=== PATIENT | female | born 1960 | race Caucasian/White ===

== ENCOUNTER 2018-07-15 01:41 | Emergency (ER) | payer BC ==
[2018-07-15 02:04] LABS: URINE APPEARANCE CLEAR; URINE BILIRUBIN NEGATIVE (NEGATIVE); URINE BLOOD TRACE-I (NEGATIVE); URINE COLOR YELLOW; URINE GLUCOSE (UA) NEGATIVE (NEGATIVE); URINE KETONE NEGATIVE (NEGATIVE); URINE LEUKOCYTE ESTERASE NEGATIVE (NEGATIVE); URINE NITRITE NEGATIVE (NEGATIVE); URINE PROTEIN NEGATIVE (NEGATIVE); URINE UROBILINOGEN 0.2 E.U./dL (0.20 - 1.00)
[2018-07-15 02:08] LABS: URINE BACTERIA NONE SEEN; URINE RBC 0 - 2 (NONE SEEN); URINE WBC 0 - 2 (0-2/hpf)
[2018-07-15] MEDS ORDERED: 0.9 % SODIUM CHLORIDE 1,000 ML BAG IV ONE (02:33)
[2018-07-15] MEDS ORDERED: MAGNESIUM HYDROXIDE/AL HYDROX 30 ML, LIDOCAINE VISC 2% 15ML 15 ML PO ONE ×2 (02:35)
--- NOTE | 2018-07-15 02:41 | Emergency Department Record ---
History of Present Illness - General Chief Complaint: Abdominal Pain Stated Complaint: ABD PAIN Time Seen by Provider: 07/15/18 01:45 Source: Patient Mode of Arrival: Ambulatory Limitations: No limitations - History of Present Illness Initial Comments: pt has ap that started about 8 hours ago before dinner. it feels like a gas pain that wont stop. no n/v/c/d. nothing makes it better or worse. pain is all over MD Complaint: Abdominal pain Onset/Timin -: Hour(s) Location: Epigastric Radiation: Back Severity scale (1-10): 7 Quality: Fullness Consistency: Constant Improves With: Nothing Worsens With: Nothing Associated Symptoms: Denies other symptoms - Related Data Patient : No Allergies Allergy/AdvReac Type Severity Reaction Status Date / Time levofloxacin [From Levaquin] Allergy Mild NAUSEA AND Verified 07/15/18 03:18 VOMITING codeine AdvReac NAUSEA AND Verified 07/15/18 03:18 VOMITING Travel Screening - Travel/Exposure Within Last 30 Days Have you traveled within the last 30 days?: No - Travel Symptoms Symptom Screening: None Review of Systems Reviewed: No additional complaints except as noted below Constitutional: Reports: As per HPI. Denies: Chills, Fever, Malaise, Night sweats, Weakness, Weight change Eyes: Reports: As per HPI. Denies: Eye discharge, Eye pain, Photophobia, Vision change ENT: Reports: As per HPI. Denies: Congestion, Dental pain, Ear pain, Epistaxis , Hearing loss, Throat pain Respiratory: Reports: As per HPI. Denies: Cough, Dyspnea, Hemoptysis, Stridor, Wheezes Cardiovascular: Reports: As per HPI. Denies: Arrhythmia, Chest pain, Dyspnea on exertion, Edema, Murmurs, Orthopnea, Palpitations, Paroxysmal nocturnal dyspnea, Rheumatic Fever, Syncope Endocrine: Reports: As per HPI. Denies: Fatigue, Heat or cold intolerance, Polydipsia, Polyuria Gastrointestinal: Reports: As per HPI, Abdominal pain. Denies: Constipation, Diarrhea, Hematemesis, Hematochezia, Melena, Nausea, Vomiting Genitourinary: Reports: As per HPI. Denies: Abnormal menses, Discharge, Dyspareunia, Dysuria, Frequency, Hematuria, Incontinence, Retention, Urgency Musculoskeletal: Reports: As per HPI. Denies: Arthralgia, Back pain, Gout, Joint swelling, Myalgia, Neck pain Skin: Reports: As per HPI. Denies: Bruising, Change in color, Change in hair/ nails, Lesions, Pruritus, Rash Neurological: Reports: As per HPI. Denies: Abnormal gait, Confusion, Headache, Numbness, Paresthesias, Seizure, Tingling, Tremors, Vertigo, Weakness Psychiatric: Reports: As per HPI. Denies: Anxiety, Auditory hallucinations, Depression, Homicidal thoughts, Suicidal thoughts, Visual hallucinations Hematological/Lymphatic: Reports: As per HPI. Denies: Anemia, Blood Clots, Easy bleeding, Easy bruising, Swollen glands Past Medical History - SOCIAL HISTORY Smoking Status: Former smoker Drug Use: Occasional Drug Use Detail:: Marijuana - RESPIRATORY Hx Respiratory Disorders: No - CARDIOVASCULAR Hx Cardio Disorders: No - NEURO Hx Neuro Disorders: No - GI Hx GI Disorders: Yes Hx Reflux: Yes - Hx Genitourinary Disorders: Yes Hx Kidney Stones: Yes - ENDOCRINE Hx Endocrine Disorders: No - MUSCULOSKELETAL Hx Musculoskeletal Disorders: Yes - PSYCH Hx Psych Problems: Yes Hx Anxiety: Yes - HEMATOLOGY/ONCOLOGY Hx Hematology/Oncology Disorders: No Hx Cancer: Yes (Skin) Hx Chemotherapy: No Hx Radiation Therapy: No Family Medical History Any Significant Family History?: Yes Hx Cancer: Mother Hx Heart Disease: Father, Mother Physical Exam - General General Appearance: Alert, Oriented x3, Cooperative, Mild distress - Head Head exam: Normal inspection - Eye Eye exam: Normal appearance, PERRL, EOMI Pupils: Normal accommodation - ENT ENT exam: Normal exam, Mucous membranes moist, Normal external ear exam, Normal orophraynx Ear exam: Normal external inspection. negative: External canal tenderness Nasal Exam: Normal inspection. negative: Discharge, Sinus tenderness Mouth exam: Normal external inspection, Tongue normal Teeth exam: Normal inspection. negative: Dental caries Throat exam: Normal inspection. negative: Tonsillar erythema, Tonsillar exudate - Neck Neck exam: Normal inspection, Full ROM. negative: Tenderness - Respiratory Respiratory exam: Normal lung sounds bilaterally. negative: Respiratory distress - Cardiovascular Cardiovascular Exam: Regular rate, Normal rhythm, Normal heart sounds - GI/Abdominal GI/Abdominal exam: Soft, Normal bowel sounds, Tenderness - Rectal Rectal exam: Deferred - exam: Deferred - Extremities Extremities exam: Normal inspection, Full ROM, Normal capillary refill. negative: Tenderness - Back Back exam: Reports: Normal inspection, Full ROM. Denies: Muscle spasm, Rash noted, Tenderness - Neurological Neurological exam: Alert, CN II-XII intact, Normal gait, Oriented X3 - Psychiatric Psychiatric exam: Normal affect, Normal mood - Skin Skin exam: Dry, Intact, Normal color, Warm Course Vital Signs 07/15/18 01:49 Temperature 98.1 F Pulse Rate [ 84 Pulse Ox Probe] Respiratory 20 Rate Blood Pressure 167/105 [Left Arm] Pulse Ox 97 - Reevaluation(s) Reevaluation #1: 07/15/18 04:08 pt feels much better Medical Decision Making - Lab Data Result diagrams: 07/15/18 02:23 07/15/18 02:23 Lab Results 07/15/18 Range/Units 02:05 Urine Color Yellow Urine Appearance Clear Urine pH 7.0 (5.0-8.0) Ur Specific [place] 1.020 (1.002-1.030) Urine Protein Negative (NEGATIVE) Urine Glucose (UA) Negative (NEGATIVE) Urine Ketones Negative (NEGATIVE) Urine Blood Trace-i (NEGATIVE) Urine Nitrite Negative (NEGATIVE) Urine Bilirubin Negative (NEGATIVE) Urine Urobilinogen 0.2 (0.20 - 1.00) E.U./dL Ur Leukocyte Esterase Negative (NEGATIVE) Urine RBC 0 - 2 (NONE SEEN) Urine WBC 0 - 2 (0-2/hpf) Ur Epithelial Cells 3 - 6 (FEW) Urine Bacteria None seen Disposition Disposition: Discharge Clinical Impression: Biliary colic, Nephrolithiasis Disposition: Home, Self-Care Condition: (1) Good Instructions: Biliary Colic (ED), Gallstones (ED) Additional Instructions: follow up with family doctor on monday. return sooner if worse. eat a bland diet. have an ultrasound of gallbladder. Forms: Patient Portal Access Quality - Quality Measures Quality Measures: N/A - Blood Pressure Screening Does Patient Have Any of the Following: No Blood Pressure Classification: Pre-Hypertensive BP Reading Systolic Measurement: 166 Diastolic Measurement: 84 Screening for High Blood Pressure: < Pre-Hypertensive BP, F/U Documented > [ G8950] Pre-Hypertensive Follow-up Interventions: Follow-up with rescreen every year.
[2018-07-15 02:42] LABS: BASO % 0.4 % (0-6); EOS % 3.8 % (0-6); GRAN % 67.7 % (47-80); HEMATOCRIT 44.8 % (35.0-47.0); HEMOGLOBIN 14.9 gm/dl (11.6-16.0); LYMPH % 20.9 % (16-45); MEAN CELL VOLUME 85.7 fl (81-97); MEAN CORPUSCULAR HEMOGLOBIN 28.5 pg (27-33); MEAN CORPUSCULAR HGB CONC 33.3 g/dl (32-36); MEAN PLATELET VOLUME 10.1 fl (7.4-10.4); MONO % 7.2 % (0-9); PLATELET COUNT 259 K/uL (130-400); RED BLOOD COUNT 5.23 M/uL (3.80-5.40); RED CELL DISTRIBUTION WIDTH 13.8 % (11.5-14.5); WHITE BLOOD COUNT W/O DIFF 9.1 K/uL (4.2-12.2)
[2018-07-15 02:53] LABS: BLOOD UREA NITROGEN 12 mg/dL (6-20); CREATININE 0.8 mg/dL (0.5-0.9); EST GLOMERULAR FILTRATION RATE > 60 mL/min; TOTAL PROTEIN 7.8 g/dL (6.6-8.7)
[2018-07-15 02:55] LABS: GLUCOSE,RANDOM 148 mg/dL (74-109)
[2018-07-15 02:58] LABS: ALBUMIN 3.9 g/dL (4.0-5.0); ALKALINE PHOSPHATASE 97 U/L (35-104); ALT/SGPT 8 U/L (<33); AST/SGOT 13 U/L (10.0-35.0)
[2018-07-15] MEDS ORDERED: KETOROLAC 30 MG/ML VIAL IVP ONE (03:12)
--- NOTE | 2018-07-16 14:59 | CT SCAN REPORT ---
EXAM: NONCONTRAST CT OF THE ABDOMEN AND PELVIS HISTORY: UPPER ABDOMINAL PAIN FOR 7-8 HOURS. TECHNIQUE: Noncontrast CT of the abdomen and pelvis was obtained. Comparison: None. FINDINGS: Mild atelectasis in both lung bases. Suggestion of faint gallstones. The gallbladder appears mildly distended with suggestion of wall thickening. No appreciable dilatation of the common bile duct. Unremarkable noncontrast CT appearance of the liver, spleen, adrenal glands, and pancreas. No hydronephrosis. Right intrarenal calculi measuring up to 2 mm. No calculi identified within the ureters or urinary bladder. The urinary bladder is mildly distended. No abnormal pelvic mass detected; pelvic structures not optimally assessed without intravenous contrast. Scattered colonic diverticulosis without evidence of acute diverticulitis. The appendix is difficult to visualize, but no right lower quadrant abdominal inflammatory changes identified. No free air or free fluid in the abdomen or pelvis. The abdominal aorta is minimally calcified and nondilated. No acute osseous findings. IMPRESSION: 1. SUGGESTION OF CHOLELITHIASIS WITH ASSOCIATED GALLBLADDER WALL THICKENING AND MILD GALLBLADDER DISTENTION. FINDINGS SUSPICIOUS FOR ACUTE CHOLECYSTITIS. THIS COULD BE FURTHER CHARACTERIZED WITH DEDICATED ULTRASOUND. 2. RIGHT INTRARENAL CALCULI WITHOUT EVIDENCE OF COLLECTING SYSTEM OBSTRUCTION. 3. COLONIC DIVERTICULOSIS WITHOUT EVIDENCE OF ACUTE DIVERTICULITIS. JOB NUMBER: [id number] MTDD
== END 2018-07-15 04:21 | disposition home or self-care (01) ==
LOC: ER 01:41
DX: N20.0 Calculus of kidney (principal); K80.50 Calculus of bile duct without cholangitis or cholecystitis without obstruction; Z87.891 Personal history of nicotine dependence
CPT/HCPCS: 74176; 80053; 81001; 85025; 96361; 96374; 99284; J1885; J7030

== ENCOUNTER 2018-10-09 22:11 | Emergency (ER) | payer BC ==
[2018-10-09] MEDS ORDERED: ONDANSETRON HCL IV 4 MG/2 ML VIAL IVP ONE (22:20)
[2018-10-09] MEDS ORDERED: KETOROLAC 30 MG/ML VIAL IVP ONE (22:21)
[2018-10-09] MEDS ORDERED: 0.9 % SODIUM CHLORIDE 1000ML 1,000 ML IV SCH (22:30)
--- NOTE | 2018-10-09 22:31 | Emergency Department Record ---
History of Present Illness - General Chief Complaint: Back Pain/Injury Stated Complaint: BACK/ABDOMINAL PAIN Time Seen by Provider: 10/09/18 22:20 Source: Patient Mode of Arrival: Ambulatory Limitations: No limitations - History of Present Illness Initial Comments: 58 yo female presents to ED for evaluation of right flank and right upper quadrant abdominal pain symptoms that began approximately 10 hours ago. Patient denies nausea, vomiting, loose stools, or urinary symptoms. Patient reports previous symptoms, was told "it was my gallbladder", also reports history of kidney stones. Patient denies previous surgical consultation for her gallbladder, does report previous hysterectomy and tubal removal. MD Complaint: Back pain, Other Onset/Timin -: Hour(s) Radiation: Abdomen Severity scale (1-10): 7 Quality: Sharp, Stabbing Consistency: Constant Improves With: None Worsens With: None Associated Symptoms: Abdominal pain, Nausea/vomiting Treatment Prior to Arrival Comment:: took ultram at about 5pm - Related Data Allergies Allergy/AdvReac Type Severity Reaction Status Date / Time levofloxacin [From Levaquin] Allergy Mild NAUSEA AND Verified 07/15/18 03:18 VOMITING codeine AdvReac NAUSEA AND Verified 07/15/18 03:18 VOMITING Travel Screening - Travel/Exposure Within Last 30 Days Have you traveled within the last 30 days?: No - Travel Symptoms Symptom Screening: None Review of Systems Constitutional: Denies: Chills, Fever, Malaise, Night sweats Eyes: Denies: Eye discharge, Eye pain ENT: Denies: Congestion, Ear pain, Epistaxis Respiratory: Denies: Cough, Dyspnea Cardiovascular: Denies: Chest pain, Dyspnea on exertion Endocrine: Denies: Fatigue, Heat or cold intolerance Gastrointestinal: Reports: Abdominal pain, Nausea. Denies: Constipation, Vomiting Genitourinary: Denies: Dysuria, Hematuria, Incontinence, Retention Musculoskeletal: Reports: Back pain. Denies: Arthralgia, Gout Skin: Denies: Bruising, Change in color Neurological: Denies: Abnormal gait, Confusion, Headache, Seizure Psychiatric: Denies: Anxiety Hematological/Lymphatic: Denies: Anemia, Blood Clots Past Medical History - SOCIAL HISTORY Smoking Status: Former smoker - RESPIRATORY Hx Respiratory Disorders: No - CARDIOVASCULAR Hx Cardio Disorders: No - NEURO Hx Neuro Disorders: No - GI Hx GI Disorders: Yes Hx Reflux: Yes - Hx Genitourinary Disorders: Yes Hx Kidney Stones: Yes - ENDOCRINE Hx Endocrine Disorders: No - MUSCULOSKELETAL Hx Musculoskeletal Disorders: Yes - PSYCH Hx Psych Problems: Yes Hx Anxiety: Yes - HEMATOLOGY/ONCOLOGY Hx Hematology/Oncology Disorders: Yes Hx Cancer: Yes (Skin) Hx Chemotherapy: No Hx Radiation Therapy: No Family Medical History Any Significant Family History?: Yes Hx Cancer: Mother Hx Heart Disease: Father, Mother Physical Exam - General General Appearance: Alert, Oriented x3, Cooperative, Moderate distress, Anxious Limitations: No limitations - Head Head exam: Atraumatic, Normocephalic, Normal inspection Head exam detail: negative: Abrasion, Contusion, Jerry's sign, General tenderness, Hematoma, Laceration - Eye Eye exam: Normal appearance. negative: Conjunctival injection, Periorbital swelling, Periorbital tenderness, Scleral icterus - ENT Ear exam: negative: Auricular hematoma, Auricular trauma Nasal Exam: negative: Active bleeding, Discharge, Dried blood, Foreign body Mouth exam: negative: Drooling, Laceration, Muffled voice, Tongue elevation - Neck Neck exam: Normal inspection. negative: Meningismus, Tenderness - Respiratory Respiratory exam: Normal lung sounds bilaterally. negative: Rales, Respiratory distress, Rhonchi, Stridor - Cardiovascular Cardiovascular Exam: Regular rate, Normal rhythm, Normal heart sounds - GI/Abdominal GI/Abdominal exam: Soft, Tenderness (TTP epigastric, RUQ regions on examination. ). negative: Rebound, Rigid - Rectal Rectal exam: Deferred - exam: Deferred - Extremities Extremities exam: Normal inspection. negative: Calf tenderness, Pedal edema, Tenderness - Back Back exam: Reports: CVA tenderness (R). Denies: CVA tenderness (L) - Neurological Neurological exam: Alert, Normal gait, Oriented X3 - Psychiatric Psychiatric exam: Normal affect, Normal mood - Skin Skin exam: Normal color. negative: Abrasion Type of lesion: negative: abrasion Course Vital Signs 10/09/18 22:18 Temperature 98 F Pulse Rate [ 86 Pulse Ox Probe] Respiratory 20 Rate Blood Pressure 178/102 [Left Arm] Pulse Ox 96 - Reevaluation(s) Reevaluation #1: 10/09/18 23:05 Laboratory studies were reviewed and are grossly unremarkable for an acute process. Patient is going for CT imaging at this time. Reevaluation #2: 10/09/18 23:31 Patient is back from CT imaging, reports that she is feeling much better. Imaging result pending. Reevaluation #3: 10/09/18 23:49 CT Abdomen and pelvis: 2 mm non-obstructing right renal calculus Diverticulosis, constipation No acute inflammatory process Patient was updated on all results, continues to report that she is feeling well and appears stable for discharge home at this time. Will refer the patient to be seen by Dr. Velazquez in the [facility] for possible biliary colic. Medical Decision Making - Lab Data Result diagrams: 10/09/18 22:33 10/09/18 22:33 Disposition Disposition: Discharge Clinical Impression: Abdominal pain Qualifiers: Abdominal location: generalized Qualified Code(s): R10.84 - Generalized abdominal pain Disposition: Home, Self-Care Condition: (2) Stable Instructions: Abdominal Pain (ED) Additional Instructions: Return to ED if your symptoms worsen or if you have any concerns. Follow-up with Dr. Velazquez in the [facility] for evaluation of possible biliary colic. Referrals: Ruy Velazquez [DOCTOR OF OSTEOPATH] - [facility] [Provider Group] Forms: Patient Portal Access Time of Disposition: 23:51 Quality - Quality Measures Quality Measures: N/A - Blood Pressure Screening Does Patient Have Any of the Following: No Blood Pressure Classification: Pre-Hypertensive BP Reading Systolic Measurement: 153 Diastolic Measurement: 85 Screening for High Blood Pressure: < Pre-Hypertensive BP, F/U Documented > [ G8950] Pre-Hypertensive Follow-up Interventions: Referral to alternative/primary care provider.
[2018-10-09 22:33] LABS: URINE APPEARANCE CLEAR; URINE BILIRUBIN NEGATIVE (NEGATIVE); URINE BLOOD SMALL (NEGATIVE); URINE COLOR YELLOW; URINE GLUCOSE (UA) NEGATIVE (NEGATIVE); URINE KETONE NEGATIVE (NEGATIVE); URINE LEUKOCYTE ESTERASE NEGATIVE (NEGATIVE); URINE NITRITE NEGATIVE (NEGATIVE); URINE PROTEIN NEGATIVE (NEGATIVE); URINE UROBILINOGEN 0.2 E.U./dL (0.20 - 1.00)
[2018-10-09 22:39] LABS: URINE BACTERIA FEW; URINE RBC 0 - 2 (NONE SEEN); URINE WBC 0 - 2 (0-2/hpf)
[2018-10-09 22:45] LABS: BASO % 0.8 % (0-6); EOS % 4.1 % (0-6); GRAN % 60.1 % (47-80); HEMATOCRIT 44.8 % (35.0-47.0); HEMOGLOBIN 14.8 gm/dl (11.6-16.0); LYMPH % 27.3 % (16-45); MEAN CELL VOLUME 85.7 fl (81-97); MEAN CORPUSCULAR HEMOGLOBIN 28.3 pg (27-33); MEAN PLATELET VOLUME 9.8 fl (7.4-10.4); MONO % 7.7 % (0-9); PLATELET COUNT 285 K/uL (130-400); RED BLOOD COUNT 5.23 M/uL (3.80-5.40); RED CELL DISTRIBUTION WIDTH 13.7 % (11.5-14.5); WHITE BLOOD COUNT W/O DIFF 10.7 K/uL (4.2-12.2)
[2018-10-09 22:55] LABS: BLOOD UREA NITROGEN 13 mg/dL (6-20); CREATININE 0.8 mg/dL (0.5-0.9); EST GLOMERULAR FILTRATION RATE > 60 mL/min
[2018-10-09 22:56] LABS: LIPASE 53 U/L (13-60)
[2018-10-09 22:58] LABS: GLUCOSE,RANDOM 128 mg/dL (74-109)
[2018-10-09 23:01] LABS: ALKALINE PHOSPHATASE 93 U/L (45-87); ALT/SGPT 13 U/L (<33); AST/SGOT 14 U/L (10.0-35.0)
--- NOTE | 2018-10-11 09:00 | CT SCAN REPORT ---
EXAM: CT SCAN OF THE ABDOMEN AND PELVIS WITH CONTRAST HISTORY: UPPER ABDOMINAL PAIN SINCE NOON TODAY. TECHNIQUE: Standard CT imaging of the abdomen and pelvis was performed with intravenous contrast. 100 ml of Omnipaque 300 were administered. Comparison: 07/15/18. FINDINGS: There is mild atelectasis or scarring at the lung bases. The liver parenchyma appears normal. There are faint stones within the gallbladder which appears similar to the previous examination. There is no biliary ductal dilatation. The pancreas and spleen are normal. The adrenal glands are unremarkable. There are two 2 mm nonobstructing stones within the right kidney. The kidneys and ureters are otherwise unremarkable. There is no obstructing calculus or hydronephrosis. The aorta is normal in caliber. There is no retroperitoneal lymphadenopathy. There are scattered diverticula within the colon and greatest within the sigmoid region. There is no evidence for acute diverticulitis. The appendix is visualized and is normal. The small bowel loops are normal in caliber. There is no pneumoperitoneum or ascites. The uterus and adnexa are normal. The urinary bladder is unremarkable. The abdominal wall is normal. There are no acute osseous abnormalities. IMPRESSION: 1. CHOLELITHIASIS WITH NO EVIDENCE FOR ACUTE CHOLECYSTITIS. 2. NONOBSTRUCTING RIGHT INTRARENAL CALCULI. 3. SIGMOID DIVERTICULOSIS WITH NO DIVERTICULITIS. 4. SMALL HIATAL HERNIA. 5. NO ACUTE INTRAABDOMINAL PATHOLOGY. JOB NUMBER: [id number] MTDD
== END 2018-10-10 00:08 | disposition home or self-care (01) ==
LOC: ER 22:11
DX: N20.0 Calculus of kidney (principal); R10.84 Generalized abdominal pain; K57.90 Diverticulosis of intestine, part unspecified, without perforation or abscess without bleeding; K59.00 Constipation, unspecified; R11.2 Nausea with vomiting, unspecified; Z87.442 Personal history of urinary calculi; Z87.891 Personal history of nicotine dependence
CPT/HCPCS: 99284 ×2; 96374; 96375; 96361; 83690; 85025; 80053; 81001; 74177; Q9967; J1885; J2405; J7030

== ENCOUNTER 2018-11-19 07:26 | Day surgery (SDC) | payer BC ==
[~2018-11-19 07:26] MED LIST: ACETAMINOPHEN 1,000 MG/100 ML BTL IV ONE; FAMOTIDINE 20MG TABLET PO ONE; MECLIZINE 25 MG TABLET PO ONE; METOCLOPRAMIDE 10 MG TABLET PO ONE
[2018-11-19] MEDS ORDERED: LABETALOL HCL 5MG/ML, 20ML VIAL IV ONE (07:27)
[2018-11-19] MEDS ORDERED: DEXAMETHASONE 4 MG/ML 1ML VIAL IVP ONE (07:27)
[2018-11-19] MEDS ORDERED: KETOROLAC 30 MG/ML VIAL IVP ONE (07:27)
[2018-11-19] MEDS ORDERED: MIDAZOLAM HCL 2MG/2ML VIAL IV ONE (07:27)
[2018-11-19] MEDS ORDERED: SUGAMMADEX SODIUM 200 MG/2 ML VIAL IV ONE (07:27)
[2018-11-19] MEDS ORDERED: DESFLURANE 240 ML BTL INH ONE (07:27)
[2018-11-19] MEDS ORDERED: LIDOCAINE 2% MDV (20MG/ML) 20ML VIAL IV ONE (07:27)
[2018-11-19] MEDS ORDERED: SUCCINYLCHOLINE 20 MG/ML 10ML IVP ONE (07:27)
[2018-11-19] MEDS ORDERED: PROPOFOL 10 MG/ML VIAL IV ONE (07:27)
[2018-11-19] MEDS ORDERED: ROCURONIUM BROMIDE 50MG/5ML VIAL IV ONE (07:27)
[2018-11-19] MEDS ORDERED: HYDROCODONE/APAP 5/325MG TABLET PO ONE (07:27)
[2018-11-19] MEDS ORDERED: FENTANYL PF 100MCG/2ML VIAL IV ONE (07:27)
[2018-11-19] MEDS ORDERED: ONDANSETRON HCL IV 4 MG/2 ML VIAL IVP ONE (07:27)
[2018-11-19] MEDS ORDERED: BUPIVACAINE 0.25% W/EPI MPF 30ML VIAL IVP ONE (07:27)
--- NOTE | 2018-11-20 12:31 | Operative Note ---
DATE OF SURGERY: 11/19/2018 Surgeon: Ruy Velazquez DO PREOPERATIVE DIAGNOSIS: Cholelithiasis with chronic cholecystitis. POSTOPERATIVE DIAGNOSIS: Cholelithiasis with chronic cholecystitis. OPERATION: Laparoscopic cholecystectomy. Indication: The patient is a 58-year-old female who is having ongoing right subcostal postprandial pain. She was seen in the ER on a couple of occasions. Imaging studies revealed cholelithiasis with a thickened gallbladder wall. We did discuss cholecystectomy versus medical management. She desired surgical intervention. Risks include but are not limited to bleeding, infection, ductal injury, possible conversion to open, postoperative bile leak. She understood this fully. Thereafter, consent was signed and questions answered. PROCEDURE: She was taken to the operating room and placed in a supine position. General anesthesia was administered per the department of anesthesia. The patient's abdomen was prepped and draped in the usual sterile fashion. The infraumbilical region was anesthetized with a total of 2 mL of 0.25% Sensorcaine with epinephrine. A 2 cm infraumbilical incision was made. This was carried down to the anterior rectus fascia. This was incised. Anila clamps were placed on the fascial edges and brought up into the wound. Stay sutures of 0 Vicryl were placed. Posterior rectus sheath was identified and incised. The peritoneal cavity was entered digitally. Finger sweep maneuver was done. There were no adhesions noted. At this time, a 10 mm blunt Diann port was placed. Adequate pneumoperitoneum was established. Under direct visualization, additional 5 mm epigastric and two 5 mm right subcostal ports were placed. The patient was then rotated into steep reverse Trendelenburg with rotation to left. The gallbladder was identified. It was retracted in a cephalad and lateral direction. There were dense omental adhesions as well as duodenum some at the anterior aspect. Omental adhesions were taken down bluntly. Duodenum was taken down with laparoscopic Metzenbaum scissors. No thermal sources were used near the bowel. At this time, the hepatocystic triangle was thoroughly dissected out. There was no aberrant anatomy, no posterior ductal structures. The cystic duct and cystic artery were clearly identified. The distal half of the gallbladder was released from the liver plate as well. We had an excellent critical view of safety. Each one was doubly clipped and cut in a standard fashion. Gallbladder was taken off the liver bed with Rohan harmonic. This was placed in an EndoCatch bag and brought out through the umbilical port. Right upper quadrant was rechecked and found to be hemostatic. No bleeding. No bile leak. No bowel injury noted. The patient was leveled out. The pneumoperitoneum was released. All ports were removed. The fascia was closed with 0 Vicryl in a [id number] fashion. The skin at all ports was closed with 4-0 Vicryl. The patient was taken to the recovery room in satisfactory condition. FINDINGS AT THE TIME OF SURGERY: Chronic cholecystitis. CC: Michael VIZCARRA
== END 2018-11-19 11:15 | disposition home or self-care (01) ==
LOC: SUR 07:26
PROVIDERS: ATTEND Surgery
DX: K80.10 Calculus of gallbladder with chronic cholecystitis without obstruction (principal)
CPT/HCPCS: 47562; 00790; J1885; J2405; J3010; J3490; J0330

== ENCOUNTER 2019-07-26 13:42 | Emergency (ER) | payer BC ==
[2019-07-26] MEDS ORDERED: HUMULIN R 100 UNIT/ML VIAL SC ONE (13:43)
[2019-07-26] MEDS ORDERED: 0.9 % SODIUM CHLORIDE 1,000 ML BAG IV ONE ×2 (14:11→14:49)
[2019-07-26 14:34] LABS: URINE APPEARANCE CLEAR; URINE BILIRUBIN SMALL (NEGATIVE); URINE BLOOD SMALL (NEGATIVE); URINE COLOR YELLOW; URINE KETONE TRACE (NEGATIVE); URINE LEUKOCYTE ESTERASE NEGATIVE (NEGATIVE); URINE NITRITE NEGATIVE (NEGATIVE); URINE PROTEIN NEGATIVE (NEGATIVE); URINE UROBILINOGEN 0.2 E.U./dL (0.20 - 1.00)
[2019-07-26 14:35] LABS: ABSOLUTE NEUTROPHIL COUNT 6.85; BASO % 0.6 % (0-6); EOS % 2.6 % (0-6); GRAN % 69.7 % (47-80); HEMATOCRIT 47.8 % (35.0-47.0); HEMOGLOBIN 15.9 gm/dl (11.6-16.0); LYMPH % 22.1 % (16-45); MEAN CELL VOLUME 84.6 fl (81-97); MEAN CORPUSCULAR HEMOGLOBIN 28.1 pg (27-33); MEAN CORPUSCULAR HGB CONC 33.3 g/dl (32-36); MEAN PLATELET VOLUME 10.8 fl (7.4-10.4); PLATELET COUNT 264 K/uL (130-400); RED BLOOD COUNT 5.65 M/uL (3.80-5.40); RED CELL DISTRIBUTION WIDTH 13.7 % (11.5-14.5); WHITE BLOOD COUNT W/O DIFF 9.8 K/uL (4.2-12.2)
[2019-07-26 14:42] LABS: URINE RBC 0 - 2 (NONE SEEN); URINE WBC 0 - 2 (0-2/hpf)
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
[2019-07-26 14:50] LABS: BLOOD UREA NITROGEN 11 mg/dL (6-20); CREATININE 0.7 mg/dL (0.5-0.9); EST GLOMERULAR FILTRATION RATE > 60 mL/min
[2019-07-26 14:51] LABS: TOTAL PROTEIN 8.5 g/dL (6.6-8.7)
[2019-07-26 14:53] LABS: GLUCOSE,RANDOM 297 mg/dL (74-109)
[2019-07-26 14:56] LABS: ALBUMIN 4.2 g/dL (4.0-5.0); ALKALINE PHOSPHATASE 143 U/L (35-104); ALT/SGPT 19 U/L (<33); AST/SGOT 22 U/L (10.0-35.0)
[2019-07-26 15:04] LABS: ACETONE,SERUM NEGATIVE (NEGATIVE)
[2019-07-26] MEDS ORDERED: HUMULIN R 100 UNIT/ML VIAL SQ ONE (15:31)
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
[2019-07-26] MEDS ORDERED: METFORMIN 500 MG TABLET PO ONE (16:40)
== END 2019-07-26 17:19 | disposition home or self-care (01) ==
LOC: ER 13:42
DX: E11.65 Type 2 diabetes mellitus with hyperglycemia (principal); R53.1 Weakness; H53.8 Other visual disturbances
CPT/HCPCS: 99284 ×2; 96372; 82800; 85025; 80053; 36416; 81001; 82009; 83036; 82948; 70450; J1815; J7030